=== PATIENT | female | born 1945 | race Caucasian/White ===

== ENCOUNTER 2023-05-25 14:00 | Outpatient (RCR) | payer MEDICARE, SELFPAY ==
[2023-05-23 10:09] VITALS: BP 169/77; PULSE 61
--- NOTE | 2023-05-23 13:42 | MHC.PT.EP ---
[facility] [place] Office [place] Office [place] Office [address] [phone] F: [phone] F: [phone] F: [phone] F: [phone] Physical Therapy Plan of Care Date of Evaluation: 05/23/23 Date of Surgery: Diagnosis: Vertigo Assessment: Pt is a pleasant 77yo F who presents to PT with onset of dizziness for about ~1 month. Pt reports she has spinning sensation when turning her head toward the left and also has lightheadedness with positional changes. Upon assessment, she tested (+) for L posterior canal benign paraoxsymal positional vertigo (BPPV). She was negative for R posterior canal BPPV. She is an excellent candidate for skilled PT in order to address current impairments to facilitate return to PLOF. She is recommended to be seen 2x/week for 4 weeks. Frequency and Duration: The patient will be seen 2x/week for 4 weeks Short Term Goals: Pt will demonstrate ability to perform rolling in bed without dizziness Pt will perform sit<>stand transfers without dizziness Custodial Goals: Pt will perform supine to sit transfer without dizziness or instability to allow for safe bed mobility consistently Pt will successfully bend over during LE ADLs or gardening without subjective complaints of dizziness consistently Treatment Plan: Modalities to reduce pain, spasms and effusion. Manual therapy to restore motion and function. Therapeutic exercise to improve strength and flexibility. Neuromuscular re-education for posture and balance. Therapeutic activities to return to functional activities of daily living. Electronically signed by: Lani Moy, PT, DPT Please sign and return to therapist. Thank you for your referral.
--- NOTE | 2023-06-29 11:34 | MHC.PT.DC ---
[facility] [place] Office [place] Office [place] Office [address] Cecelia Valente [address] [phone] F: [phone] F: [phone] F: [phone] F: [phone] Physical Therapy Discharge Report Diagnosis: Vertigo Date of Surgery: Date of Evaluation: 05/23/23 Date of Discharge: 06/29/23 Treatments to Date: 2 Cancellations to Date: No Shows to Date: Discharge Status: Achieved Goals Improved Function Discharge Summary: Pt was seen for PT from 05/23/23-05/25/23. Pt was treated for BPPV on initial PT evaluation. At follow up appointment, her symptoms were resolved and she tested negative for BPPV bilaterally. She was taken through balance assessment and dynamic gait index assessment and performed well without dizziness. I kept pts chart open for 30 days incase she had exacerbation of symptoms. Pt is being D/C from skilled PT as she has not called to schedule in >30 days Electronically signed by: Lani Moy, PT, DPT Please sign and return to therapist. Thank you for your referral.
== END 2023-06-29 11:33 | disposition home or self-care (01) ==
LOC: HO.PT 14:00
PROVIDERS: PCP Family Medicine; Visit Provider Otolaryngology
DX: H81.10 Benign paroxysmal vertigo, unspecified ear (principal)
CPT/HCPCS: 97110; 97112; 97161

== ENCOUNTER 2024-05-15 09:45 | Outpatient (REF) | payer MEDICARE, SELFPAY ==
[2024-05-15 10:42] LABS: Hematocrit 42.4 % (37.0-47.0); Hemoglobin 14.6 g/dl (12.0-16.0); Mean Corpuscular HGB Conc 34.4 g/dl (31.0-35.0); Mean Corpuscular Hemoglobin 29.7 pg (27.0-33.0); Mean Corpuscular Volume 86.4 fL (80.0-98.0); Platelet Count 209 X10*3/uL (160-400); Red Blood Count 4.91 X10*6/uL (4.20-5.50); Red Cell Distribution Width 12.5 % (11.0-16.0); White Blood Count 4.7 X10*3/uL (4.8-10.8)
[2024-05-15 11:15] LABS: Alanine Aminotransferase 19 U/L (0-31); Anion Gap 13 (12-20); Aspartate Amino Transferase 18 U/L (5-31); Blood Urea Nitrogen 13 mg/dL (9-16); Calcium 9.4 mg/dL (8.4-10.2); Carbon Dioxide 28 mmol/L (22-29); Chloride 106 mmol/L (96-108); Estimated Glomerular Filt Rate > 60; Glucose Random 103 mg/dL (60-115); Lipase 32 U/L (8-78); Potassium 3.3 mmol/L (3.3-5.1); Sodium 144 mmol/L (135-145)
== END 2024-05-15 09:46 | disposition home or self-care (01) ==
LOC: HO.LAB 09:45
PROVIDERS: PCP Family Medicine; Visit Provider Family Medicine
DX: R74.01 Elevation of levels of liver transaminase levels (principal)
CPT/HCPCS: 36415; 80048; 83690; 84450; 84460; 85027